=== PATIENT | female | born 1960 | race Caucasian/White ===

== ENCOUNTER 2020-04-28 12:38 | Day surgery (SDC) | payer MEDICARE ==
[~2020-04-28] VITALS: Ht 177.8 cm; Wt 118.9 kg
[2020-04-28] MEDS ORDERED: LACTATED RINGERS 1,000 ML IV SCH (13:16)
[2020-04-28 13:17] VITALS: BP 139/83
[2020-04-28] MEDS ORDERED: MULTIVITAMINE (13:24)
[2020-04-28] MEDS ORDERED: EXCEDRINE PO (13:24)
[2020-04-28] MEDS ORDERED: IBUP-1222 PO (13:24)
[2020-04-28] MEDS ORDERED: CLON-364 PO (13:24)
[2020-04-28] MEDS ORDERED: VITAMIN C (13:24)
[2020-04-28] MEDS ORDERED: [UNRECOGNIZED DRUG - OTHER] (13:24)
[2020-04-28] MEDS ORDERED: CYCL-259 PO (13:24)
[2020-04-28] MEDS ORDERED: VITAMIN E (13:24)
[2020-04-28] MEDS ORDERED: CALTRATE (13:24)
[2020-04-28] MEDS ORDERED: VITAMIN D3 (13:24)
[2020-04-28] MEDS ORDERED: CHLORHEXIDINE 15 ML UDC MM ONE (13:30)
[2020-04-28] MEDS ORDERED: CHLORHEXIDINE 15 ML UDC ONE (13:38)
[2020-04-28] MEDS ORDERED: PROPOFOL 50 ML ONE (15:00)
== END 2020-04-28 17:00 | disposition home or self-care (01) ==
LOC: OUT 12:38
PROVIDERS: ATTEND Internal Medicine Gastroenterology
DX: K92.1 Melena (principal); Z11.59 Encounter for screening for other viral diseases; K63.3 Ulcer of intestine; K63.5 Polyp of colon; K64.8 Other hemorrhoids; K58.9 Irritable bowel syndrome, unspecified; M79.7 Fibromyalgia; G43.909 Migraine, unspecified, not intractable, without status migrainosus; F41.8 Other specified anxiety disorders; Z79.899 Other long term (current) drug therapy; Z87.891 Personal history of nicotine dependence; Z91.013 Allergy to seafood; Z91.048 Other nonmedicinal substance allergy status; Z90.49 Acquired absence of other specified parts of digestive tract; Z90.710 Acquired absence of both cervix and uterus; Z98.890 Other specified postprocedural states; Z83.71 Family history of colonic polyps
CPT/HCPCS: 45385; 87635; 88305; 93005; J2704; J7120